=== PATIENT | male | born 1965 | race Hispanic/Latino ===

== ENCOUNTER 2020-05-25 13:09 | Outpatient (CLI) | payer OTHER ==
--- NOTE | 2020-05-25 13:54 | RAD ---
RIGHT FOOT THREE VIEWS: 05/25/20 HISTORY: Right foot pain. FINDINGS/IMPRESSION: No acute fracture or dislocation or bony destruction identified. POS: [facility]
== END 2020-05-25 13:10 | disposition home or self-care (01) ==
LOC: RAD-FRANK 13:09
PROVIDERS: ATTEND Nurse Practitioner Family
DX: M79.671 Pain in right foot (principal)

== ENCOUNTER 2021-09-18 11:02 | Day surgery (SDC) | payer OTHER ==
[2021-09-18] MEDS ORDERED: diphenhydrAMINE 25 MG CAP ONE (12:01)
[2021-09-18] MEDS ORDERED: Acetaminophen 500 MG TAB ONE (12:01)
[2021-09-18 16:12] VITALS: BP 156/66; TEMP 97.9
== END 2021-09-18 16:19 | disposition home or self-care (01) ==
LOC: ONC/OP 11:02
PROVIDERS: ATTEND Internal Medicine Hematology & Oncology
PROC: 30233N1 Transfusion of Nonautologous Red Blood Cells into Peripheral Vein, Percutaneous Approach (ICD-10-PCS; principal; 2021-09-18)
DX: D64.9 Anemia, unspecified (principal); D69.6 Thrombocytopenia, unspecified
CPT/HCPCS: 36430; 86850; 86900; 86901; P9016